=== PATIENT | female | born 1990 | race Two or more races ===

== ENCOUNTER 2016-09-04 06:39 | Day surgery (SDC) | payer OTHER ==
[~2016-09-04] VITALS: Ht 152.4 cm; Wt 68.0 kg
[~2016-09-04 06:39] MED LIST: CEFAZOLIN 1GM IVPB FOR OMNI 50 ML IV PRN; CYCL10TA2 PO; ETON1VAG VG; NAPR500T3 PO; OXYC-323 PO; PREN1TAB58 PO; ZOLP10TA PO
[2016-09-04] MEDS ORDERED: ONDANSETRON PF 4 MG/2 ML VIAL. IV PRN (07:00)
[2016-09-04] MEDS ORDERED: FENTANYL PF 100 MCG/2 ML VIAL. IV PRN ×2 (07:00)
[2016-09-04] MEDS ORDERED: IV RINGERS,LACTATED 1000ML 1,000 ML IV SCH (07:00)
[2016-09-04] MEDS ORDERED: LIDOCAINE 1% 1 ML SYRINGE. ID PRN (07:00)
[2016-09-04] MEDS ORDERED: MORPHINE SULFATE 2 MG/ML DISP.SYRIN. IV PRN (07:00)
[2016-09-04] MEDS ORDERED: PROCHLORPERAZINE 10 MG/2 ML VIAL. IV PRN (07:00)
[2016-09-04] MEDS ORDERED: HYDROMORPHONE 2 MG/ML VIAL. IV PRN (07:00)
[2016-09-04 07:09] LABS: NEG OBC UR NEG
[2016-09-04 07:10] LABS: POS OBC UR POS
[2016-09-04] MEDS ORDERED: SURGICEL HEMOSTAT 4X8 EACH. ONE (07:41)
[2016-09-04] MEDS ORDERED: BUPIVACAINE-EPI 0.25%-1:200000 MPF 30 ML VIAL. ONE (07:42)
[2016-09-04] MEDS ORDERED: ONDANSETRON PF 4 MG/2 ML VIAL. ONE (07:54)
[2016-09-04] MEDS ORDERED: DEXAMETHASONE SOD PHOS 20 MG/5 ML VIAL. ONE (07:54)
[2016-09-04] MEDS ORDERED: LIDOCAINE 2% 100 MG/5 ML DISP.SYRIN. ONE (07:54)
[2016-09-04] MEDS ORDERED: FENTANYL PF 100 MCG/2 ML VIAL. ONE ×2 (07:54→08:37)
[2016-09-04] MEDS ORDERED: ROCURONIUM 50 MG/5 ML VIAL. ONE (07:54)
[2016-09-04] MEDS ORDERED: MIDAZOLAM HCL 2 MG/2 ML VIAL. ONE (07:54)
[2016-09-04] MEDS ORDERED: PROPOFOL 20 ML IV ONE (07:54)
[2016-09-04] MEDS ORDERED: NEOSTIGMINE METHYLSULFATE 5 MG/5 ML SYRINGE. ONE (08:46)
[2016-09-04] MEDS ORDERED: GLYCOPYRROLATE 1 MG/5 ML VIAL. ONE (08:46)
[2016-09-04] MEDS ORDERED: SEVOFLURANE 61 TO 120 MINUTES. IH ONE (08:47)
[2016-09-04] MEDS ORDERED: KETOROLAC 30 MG/ML SYRINGE FOR OR. INJ ONE (08:47)
--- NOTE | 2016-09-04 09:09 | DISCH ---
DISCHARGE INSTRUCTIONS Condition on Discharge Condition on Discharge: Stable Activity After Discharge Activity Instructions for Disc: Activity as tolerated Lifting Instructions after Dis: No heavy lifting Driving Instructions after Dis: Do not drive today Diet after Discharge Diet after Discharge: Regular Contacting the DRBraden after DC Call your doctor for: Concerns you may have Follow-Up Follow up with: Dr. Rodriguez in 1 week. TEGAN RODRIGUEZ Jr, MD Sep 04, 2016 09:09
--- NOTE | 2016-09-04 09:09 | PDOC ---
BRIEF OPERATIVE NOTE Pre-Op Diagnosis Endometriosis Post-Op Diagnosis Same Procedure Performed [facility] Resection Endometriosis Surgeon Dr. Rodriguez Anesthesia Type: General Blood Loss 10 ml Specimens Obtained peritoneal biopsy of Left and Right pelvic sidewall Findings endometriosis on Left and Right pelvic sidewall, nml fallopian tubes and ovaries noelle. Complications none Additional Remarks pt. TEGAN Hester Jr, MD Sep 04, 2016 09:09
[2016-09-04] MEDS ORDERED: OXYC-323 PO (09:28)
[2016-09-04] MEDS ORDERED: OXYCODONE/APAP 5/325 TABLET. PO PRN ×2 (09:45)
[2016-09-04 10:40] VITALS: BP 121/57
--- NOTE | 2016-09-05 00:51 | OP ---
DATE OF SURGERY: PREOPERATIVE DIAGNOSIS: Endometriosis. POSTOPERATIVE DIAGNOSIS: Endometriosis. PROCEDURE: Laparoscopic resection of endometriosis. SURGEON: Tegan Rodriguez MD ANESTHESIA: GETA. ESTIMATED BLOOD LOSS: 10 mL. COMPLICATIONS: None. FINDINGS: Normal size uterus, normal fallopian tubes and ovaries bilaterally, endometriosis on the left pelvic sidewall. SUMMARY: A 26-year-old with history of chronic pelvic pain, endometriosis, unresponsive to pain medication as well as medications and treatment for endometriosis requiring surgical treatment. The patient was counseled on risks, benefits and expectations of resection of endometriosis and voiced a clear understanding to proceed. DESCRIPTION OF PROCEDURE: The patient was taken to surgery suite and placed in dorsal lithotomy position where she was prepped with Betadine solution for vaginal prep and ChloraPrep for abdominal prep. After adequate anesthesia, a bivalve speculum was placed vaginally. The anterior lip of the cervix grasped with single tooth tenaculum. The uterine acorn manipulator was then placed. The bivalve speculum was removed. Attention was now placed on abdomen. Small transverse skin incision was made just below the umbilicus. The Veress needle was then placed through the infraumbilical incision site. The abdomen was allowed to insufflate up to 1-1/2 liters CO2 gas. The Veress needle was then removed, 5 mm trocar was placed. Scope was positioned. The uterus appeared normal size. Fallopian tubes, ovaries appeared normal. There was evidence of endometriosis on the left pelvic sidewall, also right pelvic sidewall. Two additional incisions made with scalpel and 5 mm trocars were placed at each site. With aid of John retractors and EndoShears, the two areas of endometriosis were resected. There was good hemostasis. Suction irrigation was utilized copiously for the procedure. There was small amount of normal saline that was left in the posterior cul-de-sac. The trocars were then removed under direct visualization. The abdomen was allowed to deflate as much as possible along with mechanical manipulation. The three skin incisions were reapproximated using 4-0 Vicryl suture in subcuticular manner. A 0.25% Marcaine with epinephrine was injected at each incision site. The uterine acorn manipulator and single tooth tenaculum were removed. The patient tolerated the procedure well and was taken to recovery room in stable condition. Sponge and needle counts correct x 3. TEGAN RODRIGUEZ MD DR: DAVID/sanjiv JOB#: [id number] / [id number]
--- NOTE | 2016-09-05 15:50 | PATHOLOGY ---
PATHOLOGY REPORT * * * * * * * * FINAL DIAGNOSIS: A. Fibromembranous tissue, left peritoneal wall biopsy: - Focal endometriosis and coagulative changes. B. Fibromembranous and fibroadipose tissue, right pelvic side wall peritoneal biopsy: - Focal fibrosis, hemosiderin-laden macrophages, and coagulative changes, consistent with endometriosis. Comment: Comment: There is no evidence of malignancy. (JPM:; d/t: 09/05/16) REPORT ELECTRONICALLY SIGNED BY: Rob Hannon M.D. DATE/TIME: 09/05/2016 15:49 * * * * * * * * GROSS PATHOLOGY: A. The specimen is received in formalin, labeled "Marry Song and left peritoneal wall bx." Received is a 0.7 x 0.5 x 0.3 cm blood-tinged, pink-fleming, and rubbery soft tissue. The specimen is bisected and entirely submitted in cassette A1. B. The specimen is received in formalin, labeled "Marry Song and right pelvic side wall peritoneal bx." Received is a 1.7 x 0.8 x 0.3 cm blood-tinged, pink-fleming to yellow-fleming, rubbery, and membranous soft tissue. The specimen is trisected and entirely submitted in cassette B1. (TTL; 09/04/2016) INITIAL CPT CODE(S): A; 63466 B; 09265 Professional services performed by [facility] [place] [address] Technical services performed by [facility] at [address] [place] [address], [facility] [address] [address]. SPECIMEN(S) RECEIVED: A.Left peritoneal wall biopsy B.Right pelvic side wall peritoneal biopsy CLINICAL HISTORY: Endometriosis PATIENT: MARRY SONG /AGE: 803/15/1990 (Age: 26) PATIENT #: [id number] ALT CASE #: SPECIMEN COLLECTION DATE: 09/04/2016 SPECIMEN RECEIVED DATE: 09/04/2016 [facility] - [address] [place] [address] - PHONE: [phone] * * * END OF REPORT * * *
== END 2016-09-04 11:03 | disposition home or self-care (01) ==
LOC: SURG 06:39
PROVIDERS: ATTEND Obstetrics & Gynecology
DX: N80.0 Endometriosis of uterus (principal); F41.9 Anxiety disorder, unspecified; F10.99 Alcohol use, unspecified with unspecified alcohol-induced disorder
CPT/HCPCS: 58662; 81025; A4215; J0690; J1100; J1885; J2250; J2405; J2704; J2710; J3010; J3490; J7030; 88305